=== PATIENT | female | born 2000 | race Caucasian/White ===

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

== ENCOUNTER 2019-03-19 13:21 | Emergency (ER) | payer OTHER ==
[2019-03-19 13:38] VITALS: BP 132/90
[2019-03-19] MEDS ORDERED: Acetaminophen TAB* 325 MG PO ONE (13:57)
--- NOTE | 2019-03-19 14:05 | UC ---
Headache HPI - HPI Summary HPI Summary: 18-year-old female comes in with a chief complaint of headache. On March 13, 2019 6 days ago patient had a seizure ended up on the floor at home she did strike her head on some furniture on the left side. She said headache the left temporal area into the left jaw and the left neck ever since then. The pains been getting worse rather than better. Last night it woke her from sleep every hour. She did see her neurologist who takes care of her for her seizures since the fall. Patient is not nauseous. No weakness or numbness no photophobia. She's been taking Advil with very little relief today. The Advil was working earlier in the week. No change in vision or speech. - History Of Current Complaint Chief Complaint: UCHeadache Stated Complaint: HEADACHE Time Seen by Provider: 03/19/19 13:46 Hx Last Menstrual Period: 03/10/19 Pain Intensity: 9 - Allergies/Home Medications Allergies/Adverse Reactions: Allergies Allergy/AdvReac Type Severity Reaction Status Date / Time Penicillins Allergy seizure Verified 03/19/19 14:02 Home Medications: Home Medications Divalproex DR TAB(*) [Depakote DR TAB(*)] 1 tab QPM 03/19/19 [History Confirmed 03/19/19] Folic Acid TAB* [Folvite TAB*] 1 mg PO DAILY 03/19/19 [History Confirmed ] PMH/Surg Hx/FS Hx/Imm Hx Previously Healthy: Yes Neurological History: Seizures - Surgical History Surgical History: None - Family History Known Family History: Positive: None Negative: Hypertension, Diabetes, Seizure Disorder - Social History Alcohol Use: None Substance Use Type: None Smoking Status (MU): Never Smoked Tobacco Review of Systems All Other Systems Reviewed And Are Negative: Yes Constitutional: Positive: Negative Skin: Positive: Negative Eyes: Positive: Negative ENT: Positive: Other - see hpi Respiratory: Positive: Negative Cardiovascular: Positive: Negative Gastrointestinal: Positive: Negative Motor: Positive: Negative Neurovascular: Positive: Negative Musculoskeletal: Positive: Other: - see hpi Neurological: Positive: Headache Psychological: Positive: Negative Is Patient Immunocompromised?: No Physical Exam Triage Information Reviewed: Yes Appearance: Well-Appearing, Well-Nourished, Pain Distress - mild Vital Signs: Initial Vital Signs Temp 98.6 F 03/19/19 13:30 Pulse 92 06/08/19 13:30 Resp 16 03/19/19 13:30 BP 132/90 03/19/19 13:30 Pulse Ox 99 03/19/19 13:30 Vital Signs Reviewed: Yes Eye Exam: Normal Eyes: Positive: Conjunctiva Clear, Other: - perrla/eomi, no photophobia ENT: Positive: TM dull - Left lower TM dull and slightly dark in appearance. Rt TM NL, Trismus, Other - Tender to palpation left samaritan and jaw. Able to open mouth fully.. Negative: Nasal drainage, Muffled voice, Hoarse voice Neck: Positive: Supple, Other: - Tender to palpation left posterior neck Respiratory: Positive: Lungs clear, Normal breath sounds, No respiratory distress Cardiovascular: Positive: RRR Musculoskeletal Exam: Normal Musculoskeletal: Positive: Strength Intact, ROM Intact Neurological Exam: Normal Neurological: Positive: Alert, Muscle Tone Normal Psychological Exam: Normal Psychological: Positive: Normal Response To Family, Age Appropriate Behavior Skin Exam: Normal Headache Course/Dx - Course Course Of Treatment: Patient Name: HARI ANDRADE Medical Record#: [id number] Ordering Physician: Rashi Tavera MD Acct.#: [id number] : 2000 Age: 18 Sex: F Location: [facility] Exam Date: 03/19/19 135 ADM Status: [facility] ER Order Information: CT SPINE CERVICAL W/O Accession Number: [id number] CPT: 31274 INDICATION: Trauma, left-sided neck pain. COMPARISON: There are no prior studies available for comparison. TECHNIQUE: Contiguous axial sections were obtained from the skull base through the T2 vertebra. Images were reconstructed in the sagittal and coronal planes. FINDINGS: VERTEBRA: There is straightening and reversal of the normal cervical lordosis. No prevertebral soft tissue swelling or fracture is seen. C2-C3: No significant spinal canal or neural foraminal narrowing is seen. C3-C4: No significant spinal canal or neural foraminal narrowing is seen. C4-C5: No significant spinal canal or neural foraminal narrowing is seen. C5-C6: No significant spinal canal or neural foraminal narrowing is seen. C6-C7: No significant spinal canal or neural foraminal narrowing is seen. LUNG APICES: The lung apices appear clear. IMPRESSION: STRAIGHTENING AND REVERSAL OF THE NORMAL CERVICAL LORDOSIS. NO EVIDENCE FOR FRACTURE. <Electronically signed by Kade Ochoa MD in [place]> 03/19/19 1440 Patient Name: HARI ANDRADE Medical Record#: [id number] Ordering Physician: Rashi Tavera MD Acct.#: [id number] : 2000 Age: 18 Sex: F Location: [facility] Exam Date: 03/19/19 1357 ADM Status: REG ER Order Information: CT MAXILLOFACIAL W/O Accession Number: [id number] CPT: 09963 INDICATION: Left-sided face and jaw pain status post trauma. COMPARISON: There are no relevant prior studies available for comparison. TECHNIQUE: Contiguous axial sections of the axial images of the facial bones were obtained and reconstructed in the coronal and sagittal planes. FINDINGS: The ernst of the orbits and maxillary sinuses appear intact. The zygomatic arches appear intact. There is no evidence for a fracture of the mandible. The nasal bones appear intact. There is moderate to severe deviation of the nasal septum toward the right side. The pterygoid plates appear intact. The paranasal sinuses appear clear.. There is a large carious lesion in the left first molar of the mandible. IMPRESSION: 1. NO EVIDENCE OF FRACTURE. 2. LARGE CARIOUS LESION IN THE LEFT FIRST MOLAR OF THE MANDIBLE. RECOMMEND DENTAL CONSULTATION. <Electronically signed by Kade Ochoa MD in [place]> 03/19/19 1450 Patient Name: HARI ANDRADE Medical Record#: [id number] Ordering Physician: Rashi Tavera MD Acct.#: [id number] : 2000 Age: 18 Sex: F Location: [facility] Exam Date: 03/19/19 1357 ADM Status: REG ER Order Information: CT BRAIN WO Accession Number: [id number] CPT: 83299 INDICATION: Headache status post trauma. COMPARISON: Comparison is made with a prior MRI of the brain from August 23, [address] of the brain from December 29, 2008. TECHNIQUE: Contiguous axial sections of the brain were obtained from the skull base to the vertex without contrast. FINDINGS: The ventricles, cisterns and sulci are within normal limits. No significant focal abnormality or mass effect is seen. There is no evidence for hemorrhage. No significant focal osseous abnormality is seen. The visualized portion of the paranasal sinuses and mastoid air cells appear clear. IMPRESSION: NO EVIDENCE FOR ACUTE INTRACRANIAL ABNORMALITY. <Electronically signed by Kade Ochoa MD in [place]> 03/19/[address] report with the patient and her family. On the CT of the maxillofacial there is a large carious lesion seen on the left lower most posterior molar. On further conversation with the patient she indicates that the pain is worst in this area. Cause of her pain is most probably dental. We will treat with an antibiotic clindamycin because the patient's allergic to penicillin and in clinic the acetaminophen does help a fair amount with her pain and therefore patient will use acetaminophen and ibuprofen as directed for pain control. Follow-up with her dentist. - Differential Dx/Diagnosis Provider Diagnosis: Headache, Pain, dental Discharge - Sign-Out/Discharge Documenting (check all that apply): Patient Departure All imaging exams completed and their final reports reviewed: No Studies - Discharge Plan Condition: Stable Disposition: HOME Prescriptions: Clindamycin Cap(NF) [Clindamycin Cap 300 mg Cap(NF)] 300 mg PO Q6H #40 cap Patient Education Materials: Acute Headache (ED), Toothache (ED) Referrals: Rashi Mcclellan NP [Primary Care Provider] - Additional Instructions: FOLLOW UP WITH YOUR DENTIST. GET RECHECKED SOONER IF YOUR CONDITION WORSENS OR ANY QUESTIONS OR CONCERNS. - Billing Disposition and Condition Condition: STABLE Disposition: Home
== END 2019-03-19 15:19 | disposition home or self-care (01) ==
LOC: UCCORT 13:21
DX: R51 Headache (principal); M54.2 Cervicalgia; K08.89 Other specified disorders of teeth and supporting structures; K02.9 Dental caries, unspecified; Z88.0 Allergy status to penicillin; R56.9 Unspecified convulsions
CPT/HCPCS: 70450; 70486; 72125; 99212; A9270-GY; G0463